=== PATIENT | female | born 1945 | race Caucasian/White ===

== ENCOUNTER 2017-05-06 13:50 | Emergency (ER) | payer MEDICARE ==
[~2017-05-06] VITALS: Ht 157.5 cm; Wt 81.7 kg
[~2017-05-06 13:50] MED LIST: ATOR40TA PO; Humalog Mi100 UNIT/4; INSULANPEN; LOSA25 PO
[2017-05-06 15:29] LABS: BASOPHILS ABSOLUTE AUTO 0.04 K/mm3 (0.00-0.23); BASOPHILS PERCENT AUTO 0 % (0-2); EOSINOPHILS ABSOLUTE AUTO 0.06 K/mm3 (0.00-0.68); EOSINOPHILS PERCENT AUTO 1 % (0-6); Hematocrit 46.6 % (33.0-51.0); Hemoglobin 15.3 g/dL (11.5-16.0); IMMATURE GRAN ABSOLUTE AUTO 0.04 K/mm3 (0.00-0.10); IMMATURE GRAN PERCENT AUTO 0 % (0-1); LYMPHOCYTES ABSOLUTE AUTO 1.33 K/mm3 (0.84-5.20); LYMPHOCYTES PERCENT AUTO 14 % (21-46); MONOCYTES ABSOLUTE AUTO 0.61 K/mm3 (0.16-1.47); MONOCYTES PERCENT AUTO 6 % (4-13); Mean Corpuscular HGB 31.3 pg (26.0-34.0); Mean Corpuscular HGB Conc 32.8 g/dL (31.5-36.5); Mean Corpuscular Volume 95 fL (80-100); NEUTROPHILS ABSOLUTE AUTO 7.75 K/mm3 (1.96-9.15); NEUTROPHILS PERCENT AUTO 79 % (41-73); RDW Coefficient Variation 13.3 % (11.7-14.2); RDW Standard Deviation 47.2 fL (35.1-46.3); Red Blood Cell Count 4.89 M/mm3 (3.80-5.20); White Blood Cell Count 9.83 K/mm3 (4.00-11.30)
[2017-05-06 15:48] LABS: Mean Platelet Volume 12.4 fL (9.1-12.4); Platelet Count 132 K/mm3 (150-400)
[2017-05-06 15:50] LABS: Alanine Aminotransfer (ALT/SGP 29 U/L (12-78); Albumin, Blood 3.7 g/dL (3.4-5.0); Albumin/Globulin Ratio 0.9 (0.8-1.8); Alk Phos 61 U/L (50-136); Anion Gap 8 mmol/L (6-16); Aspartate Aminotrans (AST/SGOT 41 U/L (12-37); Bilirubin, Total 0.6 mg/dL (0.1-1.0); Blood Urea Nitrogen 15 mg/dL (8-24); Bun/Creatinine Ratio 18.4 (12.0-20.0); CO2, Blood 26 mmol/L (21-32); Calcium, Blood 9.4 mg/dL (8.5-10.1); Chloride, Blood 104 mmol/L (98-108); Creatinine, Blood 0.82 mg/dL (0.40-1.00); Globulin, Blood 3.9 g/dL (2.2-4.0); Glomerular Filtration Rate >60 (60-); Glucose, Blood 185 mg/dL (70-99); Sodium, Blood 138 mmol/L (136-145); Total Protein, Blood 7.6 g/dL (6.4-8.2)
[2017-05-06] MEDS ORDERED: HYDMOR2 PO (18:42)
== END 2017-05-06 18:47 | disposition home or self-care (01) ==
LOC: ER 13:50
PROVIDERS: Internal Medicine
DX: S19.9XXA Unspecified injury of neck, initial encounter (principal); E11.9 Type 2 diabetes mellitus without complications; I25.10 Atherosclerotic heart disease of native coronary artery without angina pectoris; Z79.899 Other long term (current) drug therapy; Z79.4 Long term (current) use of insulin; Z86.73 Personal history of transient ischemic attack (TIA), and cerebral infarction without residual deficits; W01.0XXA Fall on same level from slipping, tripping and stumbling without subsequent striking against object, initial encounter; Y92.480 Sidewalk as the place of occurrence of the external cause
CPT/HCPCS: 36415; 72125; 80053; 85025; 93005; 93010; 96374; 96375; 99284; J1170; J2405; J3010

== ENCOUNTER 2019-08-03 08:26 | Day surgery (SDC) | payer OTHER ==
[~2019-08-03] VITALS: Ht 160 cm; Wt 74.3 kg
[~2019-08-03 08:26] MED LIST changes: +AMLO5 PO; +ASPIR 8181 M1 PO; +ATOR80 PO; +ATORVASTATIN CA PO; +BASAGLAR K100 UNIT/1 SC; +DOCU100 PO; +FAMO20 PO; +HYDMOR2 PO; +LANS30EC PO; +LOSARTAN POTASS25 M2 PO; +MIRALAX17 GM PO
--- NOTE | 2019-08-03 09:57 | NUR ---
08/03/19 0957 Malena Richard V 2 FAILED IV IN R FOREARM, 2 FAILED IV IN L FOREARM, 1 IV PLACED IN L HAND.
== END 2019-08-03 10:50 | disposition home or self-care (01) ==
LOC: ORSCSDS 08:26
PROVIDERS: Internal Medicine Gastroenterology
PROC: 0DBK8ZX Excision of Ascending Colon, Via Natural or Artificial Opening Endoscopic, Diagnostic (ICD-10-PCS; principal; 2019-08-03 09:30)
PROC: 0DBH8ZX Excision of Cecum, Via Natural or Artificial Opening Endoscopic, Diagnostic (ICD-10-PCS; principal; 2019-08-03 09:30)
PROC: 0DB58ZX Excision of Esophagus, Via Natural or Artificial Opening Endoscopic, Diagnostic (ICD-10-PCS; principal; 2019-08-03 09:30)
PROC: 0DBN8ZX Excision of Sigmoid Colon, Via Natural or Artificial Opening Endoscopic, Diagnostic (ICD-10-PCS; principal; 2019-08-03 09:30)
DX: Z12.11 Encounter for screening for malignant neoplasm of colon (principal); Z86.010 Personal history of colon polyps; K21.9 Gastro-esophageal reflux disease without esophagitis; D12.5 Benign neoplasm of sigmoid colon; D12.0 Benign neoplasm of cecum; D12.2 Benign neoplasm of ascending colon; K57.30 Diverticulosis of large intestine without perforation or abscess without bleeding; K64.1 Second degree hemorrhoids; G47.33 Obstructive sleep apnea (adult) (pediatric); E78.5 Hyperlipidemia, unspecified; I10 Essential (primary) hypertension; E11.9 Type 2 diabetes mellitus without complications; I25.10 Atherosclerotic heart disease of native coronary artery without angina pectoris; Z79.4 Long term (current) use of insulin; Z79.899 Other long term (current) drug therapy; Z79.82 Long term (current) use of aspirin
CPT/HCPCS: 82947; J2704; J7120

== ENCOUNTER → 2020-02-01 | Outpatient (CLI) | payer OTHER ==
[2020-02-01 13:39] LABS: Source, Urine Clean Catch
[2020-02-01 15:58] LABS: Appearance, Urine Clear (Clear); Bilirubin, Urine Neg (Neg); Blood, Urine Neg (Neg); Color, Urine Yellow (P-Yellow); Glucose Qualitative, Urine Neg (Neg); Ketones, Urine Neg (Neg); Leukocyte Esterase, Urine Neg (Neg); Nitrite, Urine Neg (Neg); Protein, Urine Neg (Neg); Urobilinogen, Urine NORM (Normal); pH, Urine 6.5 (5.0-8.0)
== END | disposition home or self-care (01) ==
LOC: LAB 11:56 → LAB SHORT 11:56 → LAB FUT 01-18 08:40
PROVIDERS: Physician Assistant
DX: R79.89 Other specified abnormal findings of blood chemistry (principal)
CPT/HCPCS: 81003

== ENCOUNTER 2020-02-12 15:10 | Emergency (ER) | payer OTHER ==
[~2020-02-12] VITALS: Ht 157.5 cm; Wt 74.8 kg
[2020-02-12 16:03] LABS: BASOPHILS ABSOLUTE AUTO 0.04 K/mm3 (0.00-0.23); BASOPHILS PERCENT AUTO 1 % (0-2); EOSINOPHILS ABSOLUTE AUTO 0.19 K/mm3 (0.00-0.68); EOSINOPHILS PERCENT AUTO 3 % (0-6); Hematocrit 39.5 % (33.0-51.0); Hemoglobin 12.5 g/dL (11.5-16.0); IMMATURE GRAN PERCENT AUTO 0 % (0-1); LYMPHOCYTES ABSOLUTE AUTO 2.45 K/mm3 (0.84-5.20); LYMPHOCYTES PERCENT AUTO 40 % (21-46); MONOCYTES ABSOLUTE AUTO 0.61 K/mm3 (0.16-1.47); MONOCYTES PERCENT AUTO 10 % (4-13); Mean Corpuscular HGB 31.7 pg (26.0-34.0); Mean Corpuscular HGB Conc 31.6 g/dL (31.5-36.5); Mean Corpuscular Volume 100 fL (80-100); Mean Platelet Volume 10.9 fL (9.1-12.4); NEUTROPHILS ABSOLUTE AUTO 2.84 K/mm3 (1.96-9.15); NEUTROPHILS PERCENT AUTO 46 % (41-73); Platelet Count 226 K/mm3 (150-400); RDW Coefficient Variation 13.5 % (11.7-14.2); RDW Standard Deviation 49.1 fL (35.1-46.3); Red Blood Cell Count 3.94 M/mm3 (3.80-5.20); White Blood Cell Count 6.13 K/mm3 (4.00-11.30)
[2020-02-12 17:52] LABS: Troponin I <0.015 ng/mL (0.000-0.040)
[2020-02-12 18:00] LABS: Alanine Aminotransfer (ALT/SGP 23 U/L (12-78); Albumin, Blood 3.3 g/dL (3.4-5.0); Albumin/Globulin Ratio 0.9 (0.8-1.8); Alk Phos 85 U/L (50-136); Anion Gap 7 mmol/L (6-16); Aspartate Aminotrans (AST/SGOT 20 U/L (12-37); Bilirubin, Total 0.3 mg/dL (0.1-1.0); Blood Urea Nitrogen 18 mg/dL (8-24); Bun/Creatinine Ratio 22.6 (12.0-20.0); CO2, Blood 26 mmol/L (21-32); Calcium, Blood 9.2 mg/dL (8.5-10.1); Chloride, Blood 107 mmol/L (98-108); Globulin, Blood 3.8 g/dL (2.2-4.0); Glomerular Filtration Rate >60 (60-); Glucose, Blood 157 mg/dL (70-99); Potassium, Blood 3.7 mmol/L (3.5-5.5); Sodium, Blood 140 mmol/L (136-145); Total Protein, Blood 7.1 g/dL (6.4-8.2)
[2020-02-12] MEDS ORDERED: Lasix40 MG PO (20:30)
[2020-02-12] MEDS ORDERED: POTCHL20ER PO (20:30)
== END 2020-02-12 20:45 | disposition home or self-care (01) ==
LOC: ER 15:10
PROVIDERS: Physician Assistant
DX: R60.0 Localized edema (principal); R07.9 Chest pain, unspecified; E11.9 Type 2 diabetes mellitus without complications; Z79.4 Long term (current) use of insulin; Z79.899 Other long term (current) drug therapy; Z88.8 Allergy status to other drugs, medicaments and biological substances; Z86.73 Personal history of transient ischemic attack (TIA), and cerebral infarction without residual deficits; Z95.1 Presence of aortocoronary bypass graft
CPT/HCPCS: 36415; 71046; 80053; 83880; 84484; 85025; 93005; 93010; 99284-25

== ENCOUNTER → 2020-03-07 | Outpatient (CLI) | payer OTHER ==
[~2020-03-07] MED LIST changes: +Lasix40 MG PO; +POTCHL20ER PO
== END | disposition home or self-care (01) ==
LOC: LAB 08:07 → LAB SHORT 08:07
DX: L60.2 Onychogryphosis (principal); B35.1 Tinea unguium
CPT/HCPCS: 88305; 88312

== ENCOUNTER 2021-04-29 22:11 | Inpatient (IN) | payer OTHER ==
[~2021-04-29] VITALS: Ht 157.5 cm; Wt 74.5 kg
[~2021-04-29 22:11] MED LIST changes: +ELIQUIS5 M2 PO; +FURO20 PO; +KLOR-CON 1010 ME1 PO; +LISINOPRIL2.5 MG PO; +Lasix20 MG PO; +OMEP20ER PO
[2021-04-29 22:45] LABS: BASOPHILS ABSOLUTE AUTO 0.03 K/mm3 (0.00-0.23); BASOPHILS PERCENT AUTO 0 % (0-2); EOSINOPHILS ABSOLUTE AUTO 0.13 K/mm3 (0.00-0.68); EOSINOPHILS PERCENT AUTO 2 % (0-6); Hematocrit 40.5 % (33.0-51.0); Hemoglobin 13.2 g/dL (11.5-16.0); IMMATURE GRAN ABSOLUTE AUTO 0.01 K/mm3 (0.00-0.10); IMMATURE GRAN PERCENT AUTO 0 % (0-1); LYMPHOCYTES ABSOLUTE AUTO 2.04 K/mm3 (0.84-5.20); LYMPHOCYTES PERCENT AUTO 30 % (21-46); MONOCYTES ABSOLUTE AUTO 0.58 K/mm3 (0.16-1.47); MONOCYTES PERCENT AUTO 9 % (4-13); Mean Corpuscular HGB 31.8 pg (26.0-34.0); Mean Corpuscular HGB Conc 32.6 g/dL (31.5-36.5); Mean Corpuscular Volume 98 fL (80-100); Mean Platelet Volume 10.8 fL (9.1-12.4); NEUTROPHILS PERCENT AUTO 59 % (41-73); Platelet Count 240 K/mm3 (150-400); RDW Coefficient Variation 14.7 % (11.7-14.2); Red Blood Cell Count 4.15 M/mm3 (3.80-5.20); White Blood Cell Count 6.79 K/mm3 (4.00-11.30)
[2021-04-29 23:07] LABS: Alanine Aminotransfer (ALT/SGP 19 U/L (12-78); Albumin, Blood 3.5 g/dL (3.4-5.0); Albumin/Globulin Ratio 0.8 (0.8-1.8); Alk Phos 74 U/L (50-136); Anion Gap 9 mmol/L (6-16); Aspartate Aminotrans (AST/SGOT 25 U/L (12-37); Bilirubin, Total 0.5 mg/dL (0.1-1.0); Blood Urea Nitrogen 28 mg/dL (8-24); Bun/Creatinine Ratio 33.7 (12.0-20.0); CO2, Blood 25 mmol/L (21-32); Calcium, Blood 9.7 mg/dL (8.5-10.1); Chloride, Blood 107 mmol/L (98-108); Creatinine, Blood 0.83 mg/dL (0.40-1.00); Globulin, Blood 4.4 g/dL (2.2-4.0); Glomerular Filtration Rate >60 (60-); Glucose, Blood 217 mg/dL (70-99); Potassium, Blood 3.9 mmol/L (3.5-5.5); Sodium, Blood 141 mmol/L (136-145); Total Protein, Blood 7.9 g/dL (6.4-8.2)
[2021-04-30] MEDS ORDERED: ATORVASTATIN CA20 MG PO (02:22)
[2021-04-30] MEDS ORDERED: XARELTO20 M1 PO (02:22)
[2021-04-30] MEDS ORDERED: FARXIGA5 MG PO (02:23)
[2021-04-30] MEDS ORDERED: ASPI325 PO (03:39)
--- NOTE | 2021-04-30 03:41 | NUR ---
ADMISSION: PATIENT IS RECIEVED FROM ER VIA STRETCHER. ABLE TO AMBULATE FROM STRETCHER TO BED, NO DIZZINESS OR CHEST PAIN REPORTED, VSS. PATIENT IS ORIENTED TO ROOM AND CALL [facility]. NPO AT THIS TIME. BED ALARM IS ON FOR SAFETY.
--- NOTE | 2021-04-30 06:23 | NUR ---
SHIFT SUMMARY: PATIENT IS A&OX4, REPORTS DIZZINESS AT TIMES WHEN UP. TELI. HAS BEEN A-FIB 50-60'S WITH ONE EPISODE OF BRADYCARDIA INTO THE 40'S, NON SUSTAINING. PATIENT WAS ASYMPTOMATIC. NPO FOR STRESS TEST TODAY. TROPONIN WAS CRITICAL THIS AM, 316. DR JAIN WAS NOTIFIED, HE STATED THAT HEPARIN GTT ORDERS WOULD BE PLACED. VSS, PATIENT CONTINUES TO REPORT NO CHEST PAIN. PATIENT DOES NOT UDE CALL [facility] FOR ASSIST OOB, BED ALARM IS ON.
[2021-04-30 08:38] LABS: International Normalized Ratio 1.19; Prothrombin Time Results 12.4 Sec (9.7-11.5)
--- NOTE | 2021-04-30 09:09 | NUR ---
NOTIFIED OF CRITICAL LEVEL TROP
--- NOTE | 2021-04-30 18:41 | NUR ---
SHIFT SUMMARY PT A&O X4 AND IN PLEASENT MOOD T/O SHIFT. FAMILY @ BEDSIDE DURING VISITING HOURS. HEP DRIP INITIATED PHARM CONSULT. STRESS STARTED TODAY, 2ND PORTION PLANNED FOR AM. PLAN NO CAFFEINE AFTER 1999, NPO @ 0000 BUT CAN HAVE H20. VSS. BLOOD GLUCOSE MEDICATED PER EMAR. TELE IN PLACE. CALL LIGHT W/IN REACH.
--- NOTE | 2021-04-30 22:27 | NUR ---
Cardiac: Patient had an 2.8 sec. pause on teli. rythum is a-fib @ 39-94. Dr Bhandari was notified. No new orders. continue to monitor.
--- NOTE | 2021-05-01 03:39 | NUR ---
CARDIAC: PATIENT CONTINUES TO HAVE PAUSES, FROM 2.5 TO 3.2. PATIENT IS SLEEPING DURING PAUSES, NO VSS OBSERVED. TELI RHYTHM IS A-FIB 39-[address] JAIN WAS NOTIFIED AND ORDERS TO DC LOPRESSOR Q DAY AND CONTINUE TO MONITOR.
--- NOTE | 2021-05-01 06:28 | NUR ---
SHIFT SUMMARY: PATIENT CONTINUED TO HAVE PAUSES ON TELI THROUGH THE NIGHT. VSS, PATIENT REMAINED ASYMPTOMATIC. SUPERVISOR SANDBLASTER WAS UPDATED ON TELI EVENTS.
[2021-05-01 08:31] LABS: BASOPHILS ABSOLUTE AUTO 0.04 K/mm3 (0.00-0.23); BASOPHILS PERCENT AUTO 1 % (0-2); EOSINOPHILS ABSOLUTE AUTO 0.37 K/mm3 (0.00-0.68); EOSINOPHILS PERCENT AUTO 6 % (0-6); Hematocrit 44.7 % (33.0-51.0); Hemoglobin 14.3 g/dL (11.5-16.0); IMMATURE GRAN PERCENT AUTO 0 % (0-1); LYMPHOCYTES ABSOLUTE AUTO 2.05 K/mm3 (0.84-5.20); LYMPHOCYTES PERCENT AUTO 34 % (21-46); MONOCYTES ABSOLUTE AUTO 0.58 K/mm3 (0.16-1.47); MONOCYTES PERCENT AUTO 10 % (4-13); Mean Corpuscular HGB 31.2 pg (26.0-34.0); Mean Corpuscular Volume 97 fL (80-100); NEUTROPHILS ABSOLUTE AUTO 2.94 K/mm3 (1.96-9.15); NEUTROPHILS PERCENT AUTO 49 % (41-73); Platelet Count 232 K/mm3 (150-400); RDW Coefficient Variation 14.5 % (11.7-14.2); Red Blood Cell Count 4.59 M/mm3 (3.80-5.20); White Blood Cell Count 5.98 K/mm3 (4.00-11.30)
[2021-05-01 08:47] LABS: Anion Gap 7 mmol/L (6-16); Blood Urea Nitrogen 19 mg/dL (8-24); Bun/Creatinine Ratio 26.1 (12.0-20.0); CO2, Blood 30 mmol/L (21-32); Calcium, Blood 9.3 mg/dL (8.5-10.1); Chloride, Blood 104 mmol/L (98-108); Creatinine, Blood 0.73 mg/dL (0.40-1.00); Glomerular Filtration Rate >60 (60-); Glucose, Blood 138 mg/dL (70-99); Magnesium, Blood 2.2 mg/dL (1.6-2.4); Phosphorus, Blood 3.7 mg/dL (2.5-4.9); Potassium, Blood 3.3 mmol/L (3.5-5.5); Sodium, Blood 141 mmol/L (136-145)
--- NOTE | 2021-05-01 13:35 | NUR ---
EFM Initial Interview with [employer] Supervisor 1. Who did you speak with? Spoke with patient and Joe (at bedside) 2. What is the patient's prior level of functions? Patient lives independently with spouse Jeo. Joe states patient is "wobbly" when walking, but refuses to use her walker consistently. She has a 2WW and he feels she uses it incorrectly and need proper demonstration on usage. Patient is able to perform ADL's with minimal assistance. She does all the housekeeping and cooking. Joe takes care of the property. They live in a single story home with three cats; one step at the entrance and two steps in the back of the residence. 3. Does patient still drive? No, family and [facility] as needed. 4. POA/PCP/NOK: NOK: spouse Joe [phone] 5. ANTICIPATED DISCHARGE NEEDS/GOALS: SNF/UVNR (ER rn field case manager coordinated) - DME: patient has a 2WW/cane -Home Health: TBD/no agency preference ( is afraid his will decline SNF and HH). -Medication Management: self/family. -Preferred Pharmacy-[facility] 6. List barriers to discharge: No barriers on this date 7. Discharge Plan: TBD 8. PCP Follow up appointment: Will be scheduled within seven calendar days of discharge. Explained importance of scheduling and attendance. 9. OTHER COMMENTS: Patient has a strong support network
--- NOTE | 2021-05-01 16:57 | NUR ---
Per Dr. Solis discharge appropriate. Patient did not oppose discharge. Patient is discharged home. Date of discharge: 05/01/2021 Date of admission: 04/30/2021 Provisional diagnosis at time of admission: NSTEMI Final Diagnosis at time of discharge: NSTEMI Transportation provided by: Family Location/Residence: [address] [place] [address] DME Ordered: None ordered Follow-ups needed: [facility] will contact patient to schedule hospital follow-up visit. Reinforced importance of hospital follow-up with PCP. Patient scheduled on 05/04 @ 11:00 am with Karissa per Dr. Solis. Provider/PCP: Dr. Catrina Dias When: WITHIN 1 WEEK Specialty: Renal panel function at 05/04 appt with FARHEEN Hancock Confirmed numbers: Patient [phone] Comment: Patient to contact PCP if any questions regarding medication management, social service needs, and if condition worsens go to Urgent Care/ER. No barriers to discharge. Patient has a strong support network.
[2021-05-01] MEDS ORDERED: LOSA25 PO (17:35)
[2021-05-01] MEDS ORDERED: ASPI81CH PO (17:35)
--- NOTE | 2021-05-01 18:06 | NUR ---
DISCHARGE PATIENT TRANSPORTED VIA WHEELCHAIR TO PRIVATE VEHICLE. DISCHARGE INSTRUCTIONS EXPLAINED TO PATIENT. PATIENT STATED UNDERSTANDING. PACKET SENT WITH PATIENT. BELONGINGS SENT WITH PATIENT. IV REMOVED WITHOUT DIFFICULTY. TELE REMOVED WITHOUT DIFFICULTY. MEDICATIONS FAXED TO PREFERRED PHARMACY. [facility] TO SCHEDULE FOLLOW UP APPOINTMENT. PATIENT TO SCHEDULE FOLLOW UP WITH GROUP HOME SUPERVISOR.
== END 2021-05-01 17:50 | disposition home or self-care (01) | DRG 280 ==
LOC: ER 22:11 → MEDS 22:12
PROVIDERS: Family Medicine; Student in an Organized Health Care Education/Training Program; ADMIT Internal Medicine
DX: I21.4 Non-ST elevation (NSTEMI) myocardial infarction (principal); I50.23 Acute on chronic systolic (congestive) heart failure; I48.20 Chronic atrial fibrillation, unspecified; I48.92 Unspecified atrial flutter; E11.9 Type 2 diabetes mellitus without complications; I11.0 Hypertensive heart disease with heart failure; I25.10 Atherosclerotic heart disease of native coronary artery without angina pectoris; K21.9 Gastro-esophageal reflux disease without esophagitis; I25.5 Ischemic cardiomyopathy; E78.5 Hyperlipidemia, unspecified; G47.33 Obstructive sleep apnea (adult) (pediatric); E03.9 Hypothyroidism, unspecified; R05.9 Cough, unspecified; T46.4X5A Adverse effect of angiotensin-converting-enzyme inhibitors, initial encounter; I44.7 Left bundle-branch block, unspecified; I27.20 Pulmonary hypertension, unspecified; I08.1 Rheumatic disorders of both mitral and tricuspid valves; Z95.1 Presence of aortocoronary bypass graft; Z86.73 Personal history of transient ischemic attack (TIA), and cerebral infarction without residual deficits; Z88.8 Allergy status to other drugs, medicaments and biological substances; Z79.899 Other long term (current) drug therapy
CPT/HCPCS: 36415; 71045; 78452; 80053; 80069; 82947; 83735; 83880; 84484; 85025; 85610; 85730; 93005; 93010; 93017; 99285-25; A9270; A9500; G0378; J0706; J1644; J1940; J2785

== ENCOUNTER 2022-03-28 19:23 | Emergency (ER) | payer OTHER ==
[~2022-03-28] VITALS: Ht 157.5 cm; Wt 68.0 kg
[~2022-03-28 19:23] MED LIST changes: +ALDACTONE25 MG PO; +ASPI325 PO; +ASPI81CH PO; +ATORVASTATIN CA20 MG PO; +ATORVASTATIN CA80 M1 PO; +FARXIGA10 MG PO; +FARXIGA5 MG PO; +FUROSEMIDE40 MG PO; +LOSARTAN POTAS100 M1 PO; +METFORMIN HCL500 M3 PO; +XARELTO20 M1 PO
[2022-03-28 19:57] LABS: BASOPHILS ABSOLUTE AUTO 0.03 K/mm3 (0.00-0.23); BASOPHILS PERCENT AUTO 0 % (0-2); EOSINOPHILS PERCENT AUTO 2 % (0-6); Hematocrit 39.2 % (33.0-51.0); Hemoglobin 13.3 g/dL (11.5-16.0); IMMATURE GRAN ABSOLUTE AUTO 0.01 K/mm3 (0.00-0.10); IMMATURE GRAN PERCENT AUTO 0 % (0-1); LYMPHOCYTES ABSOLUTE AUTO 1.34 K/mm3 (0.84-5.20); LYMPHOCYTES PERCENT AUTO 14 % (21-46); MONOCYTES ABSOLUTE AUTO 0.59 K/mm3 (0.16-1.47); MONOCYTES PERCENT AUTO 6 % (4-13); Mean Corpuscular HGB 32.3 pg (26.0-34.0); Mean Corpuscular HGB Conc 33.9 g/dL (31.5-36.5); Mean Corpuscular Volume 95 fL (80-100); Mean Platelet Volume 12.1 fL (9.1-12.4); NEUTROPHILS ABSOLUTE AUTO 7.61 K/mm3 (1.96-9.15); NEUTROPHILS PERCENT AUTO 78 % (41-73); Platelet Count 159 K/mm3 (150-400); RDW Coefficient Variation 13.2 % (11.7-14.2); RDW Standard Deviation 46.4 fL (35.1-46.3); Red Blood Cell Count 4.12 M/mm3 (3.80-5.20); White Blood Cell Count 9.78 K/mm3 (4.00-11.30)
[2022-03-28 20:16] LABS: Albumin, Blood 3.1 g/dL (3.4-5.0); Albumin/Globulin Ratio 0.8 (0.8-1.8); Bilirubin, Total 0.6 mg/dL (0.1-1.0); Bun/Creatinine Ratio 35.1 (12.0-20.0); Creatinine, Blood 1.14 mg/dL (0.40-1.00); Globulin, Blood 3.9 g/dL (2.2-4.0)
[2022-03-28] MEDS ORDERED: ONDA4ODT MM (22:05)
== END 2022-03-29 00:35 | disposition home or self-care (01) ==
LOC: ER 19:23
PROVIDERS: Student in an Organized Health Care Education/Training Program
DX: R11.10 Vomiting, unspecified (principal); E11.9 Type 2 diabetes mellitus without complications; I48.91 Unspecified atrial fibrillation; Z79.01 Long term (current) use of anticoagulants
CPT/HCPCS: 36415; 80053; 85025; 99283; A9270

== ENCOUNTER → 2023-12-17 | Outpatient (CLI) | payer OTHER ==
[~2023-12-17] MED LIST changes: +ACET325 PO; -ATORVASTATIN CA20 MG PO; +HUMALOG KW100 UNIT/1 SC; +LOSA50 PO; +ONDA4ODT MM; +POTA10T PO; +PSYLLIUM FIBER0.4 GM PO; +SEMGLEE (Y100 UNIT/2 SC
[2023-12-17 18:42] LABS: Appearance, Urine Hazy (Clear); Bilirubin, Urine Neg (Neg); Blood, Urine 2+ (Neg); Color, Urine Yellow (P-Yellow); Glucose Qualitative, Urine 4+ (Neg); Ketones, Urine 1+ (Neg); Leukocyte Esterase, Urine 3+ (Neg); Nitrite, Urine Pos (Neg); Protein, Urine 2+ (Neg); Urobilinogen, Urine NORM (Normal)
[2023-12-17 18:59] LABS: Bacteria Many /hpf; Squamous Epithelial Cells Mod /hpf (Few); Transitional Epithelial Cells Rare /hpf (0-Rare)
== END | disposition home or self-care (01) ==
LOC: LAB 13:39 → LAB SHORT 13:39
PROVIDERS: Family Medicine
DX: R30.0 Dysuria (principal); R10.9 Unspecified abdominal pain
CPT/HCPCS: 81001; 87077; 87086; 87186

== ENCOUNTER 2024-01-31 13:57 | Emergency (ER) | payer OTHER ==
[~2024-01-31] VITALS: Ht 160 cm; Wt 81.7 kg
[2024-01-31 16:56] LABS: BASOPHILS ABSOLUTE AUTO 0.06 K/mm3 (0.00-0.23); BASOPHILS PERCENT AUTO 1 % (0-2); EOSINOPHILS ABSOLUTE AUTO 0.13 K/mm3 (0.00-0.68); EOSINOPHILS PERCENT AUTO 2 % (0-6); Hemoglobin 15.4 g/dL (11.5-16.0); IMMATURE GRAN ABSOLUTE AUTO 0.01 K/mm3 (0.00-0.10); IMMATURE GRAN PERCENT AUTO 0 % (0-1); LYMPHOCYTES ABSOLUTE AUTO 2.53 K/mm3 (0.84-5.20); LYMPHOCYTES PERCENT AUTO 32 % (21-46); MONOCYTES ABSOLUTE AUTO 0.73 K/mm3 (0.16-1.47); MONOCYTES PERCENT AUTO 9 % (4-13); Mean Corpuscular HGB 32.4 pg (26.0-34.0); Mean Corpuscular HGB Conc 32.8 g/dL (31.5-36.5); Mean Corpuscular Volume 99 fL (80-100); Mean Platelet Volume 12.1 fL (9.1-12.4); NEUTROPHILS ABSOLUTE AUTO 4.53 K/mm3 (1.96-9.15); NEUTROPHILS PERCENT AUTO 57 % (41-73); Platelet Count 185 K/mm3 (150-400); RDW Coefficient Variation 13.9 % (11.7-14.2); RDW Standard Deviation 50.7 fL (35.1-46.3); Red Blood Cell Count 4.76 M/mm3 (3.80-5.20); White Blood Cell Count 7.99 K/mm3 (4.00-11.30)
[2024-01-31 17:11] LABS: Albumin, Blood 3.7 g/dL (3.4-5.0); Albumin/Globulin Ratio 0.9 (0.8-1.8); Bilirubin, Total 0.8 mg/dL (0.1-1.0); Bun/Creatinine Ratio 19.4 (12.0-20.0); Calcium, Blood 9.1 mg/dL (8.5-10.1); Creatinine, Blood 0.98 mg/dL (0.40-1.00); Globulin, Blood 4.3 g/dL (2.2-4.0); Potassium, Blood 3.9 mmol/L (3.5-5.5)
[2024-01-31] MEDS ORDERED: Nitrofurantoin100 M1 PO (18:11)
[2024-01-31] MEDS ORDERED: KLOR-CON 1010 ME9 PO (18:12)
[2024-01-31] MEDS ORDERED: INSULIN AS100 UNIT/8 SC (18:15)
[2024-01-31 19:02] LABS: Source, Urine Clean Catch
[2024-01-31 19:10] LABS: Appearance, Urine Clear (Clear); Bilirubin, Urine Neg (Neg); Blood, Urine Neg (Neg); Color, Urine Yellow (P-Yellow); Glucose Qualitative, Urine 4+ (Neg); Ketones, Urine Neg (Neg); Leukocyte Esterase, Urine 1+ (Neg); Nitrite, Urine Neg (Neg); Protein, Urine Neg (Neg); Urobilinogen, Urine NORM (Normal)
[2024-01-31 19:22] LABS: Bacteria Many /hpf; Squamous Epithelial Cells Few /hpf (Few)
[2024-01-31 19:23] LABS: Yeast/Fungi Urine Rare /hpf
[2024-01-31 19:40] LABS: Influenza A, PCR NEGATIVE (NEGATIVE); Influenza B, PCR NEGATIVE (NEGATIVE); Resp Syncytial Virus, PCR NEGATIVE (NEGATIVE); SARS-Cov-2 (COVID-19) PCR, MMC NEGATIVE (NEGATIVE)
[2024-01-31 20:30] VITALS: BP 141/87
[2024-01-31] MEDS ORDERED: CEFD300 PO (20:49)
[2024-01-31] MEDS ORDERED: Cefdinir 300 MG Cap PO ONE (20:50)
== END 2024-01-31 21:00 | disposition home or self-care (01) ==
LOC: ER 13:57
PROVIDERS: Emergency Medicine
DX: N39.0 Urinary tract infection, site not specified (principal); Z88.8 Allergy status to other drugs, medicaments and biological substances; Z88.5 Allergy status to narcotic agent; Z79.899 Other long term (current) drug therapy; Z79.4 Long term (current) use of insulin; I10 Essential (primary) hypertension
CPT/HCPCS: 0241U; 70450; 71045; 80053; 81001; 85025; 87086; 93005; 93010; 99285-25; A9270

== ENCOUNTER → 2024-02-17 | Outpatient (CLI) | payer OTHER ==
[~2024-02-17] MED LIST changes: +BASAGLAR K100 UNIT/6 SC; +CEFD300 PO; +INSULIN AS100 UNIT/8 SC; +KLOR-CON 1010 ME9 PO; +Nitrofurantoin100 M1 PO
== END ==
LOC: LAB 16:13 → LAB SHORT 16:13
DX: N39.0 Urinary tract infection, site not specified (principal)
CPT/HCPCS: 87086

== ENCOUNTER 2024-02-24 09:03 | Day surgery (SDC) | payer OTHER ==
[2024-02-24] VITALS (9 sets, daily range): BP systolic 143–180; BP diastolic 63–87
[~2024-02-24] VITALS: Ht 157.5 cm; Wt 76.5 kg
[~2024-02-24 09:03] MED LIST changes: -BASAGLAR K100 UNIT/6 SC
[2024-02-24] MEDS ORDERED: BASAGLAR K100 UNIT/6 SC (09:50)
[2024-02-24] MEDS ORDERED: CeFAZolin Sodium 2,000 MG VIAL ONE (12:18)
[2024-02-24] MEDS ORDERED: NS 1,000 ML IV ONE ×2 (12:19→12:20)
[2024-02-24] MEDS ORDERED: FentaNYL Citrate 50 MCG/ML 2 ML Injection ONE (12:19)
[2024-02-24] MEDS ORDERED: Midazolam HCl 1MG / ML 2ML Vial ONE (12:19)
[2024-02-24] MEDS ORDERED: NS 100 ML IV ONE (12:19)
[2024-02-24] MEDS ORDERED: Heparin Sodium 1000 Units/ML 10ML MDV ONE (12:20)
[2024-02-24] MEDS ORDERED: CeFAZolin Sodium 1000 mg Vial ONE (12:20)
--- NOTE | 2024-02-24 14:20 | NUR ---
ASSUMED CAR OF PT. PT AWAKE AND ANSWERING QUESTIONS APPROPRIATELY; DENIES PAIN POST PROCEDURE. MONTIOR V PACED 60, B/P 180/73, SPO2 99% RA. L CHEST SPPM SITE NO SWELLING/HEMATOMA, TELFA AND TEGADERM DRSG INTACT. PT HAS ICE PACK IN PLACE OVER SITE.
--- NOTE | 2024-02-24 16:20 | NUR ---
PT TO RADIOLOGY FOR CHEST X RAY.
--- NOTE | 2024-02-24 16:30 | NUR ---
PT RETURNED FROM RADIOLOGY.
--- NOTE | 2024-02-24 16:45 | NUR ---
DR PARKER IN TO DISCUSS RESULTS OF PROCEDURE WITH PT AND SPOUSE.
--- NOTE | 2024-02-24 17:00 | NUR ---
PT DRESSED WITH ASSISTANCE, SITE UNCHANGED; IV REMOVED-CANNULA INTACT. PT'S L ARM PLACED IN SLING.
--- NOTE | 2024-02-24 17:08 | NUR ---
PT AND SPOUSE RECEIVED DISCHARGE INSTRUCTIONS, MED LIST AND AFTER CARE INSTRUCTIONS; VERBALIZED GOOD UNDERSTANDING. PT LEFT FACILITY VIA W/C, CONDITION STABLE.
== END 2024-02-24 17:08 | disposition home or self-care (01) ==
LOC: MHTC 09:03 → ORSCMMR 09:05 → MHTC 17:08
DX: I48.21 Permanent atrial fibrillation (principal); I25.10 Atherosclerotic heart disease of native coronary artery without angina pectoris; I11.0 Hypertensive heart disease with heart failure; I50.20 Unspecified systolic (congestive) heart failure; E78.5 Hyperlipidemia, unspecified; E11.9 Type 2 diabetes mellitus without complications; G47.33 Obstructive sleep apnea (adult) (pediatric); Z79.899 Other long term (current) drug therapy; Z86.73 Personal history of transient ischemic attack (TIA), and cerebral infarction without residual deficits; Z88.8 Allergy status to other drugs, medicaments and biological substances; Z95.1 Presence of aortocoronary bypass graft
CPT/HCPCS: 33207; 71046; 99152; 99153; C1786; C1894; C1898; J0690; J1644; J2250; J3010; J7030; J7040; Q9967

== ENCOUNTER 2024-04-27 12:53 | Emergency (ER) | payer OTHER ==
[~2024-04-27] VITALS: Ht 157.5 cm; Wt 72.6 kg
[~2024-04-27 12:53] MED LIST changes: +BASAGLAR K100 UNIT/6 SC
[2024-04-27 13:17] VITALS: BP 168/84
[2024-04-27] MEDS ORDERED: Magnesium Hydroxide Conc 10 ML UDC PO ONE (14:55)
[2024-04-27] MEDS ORDERED: Glycerin Adult Supp 1 EA PR ONE (14:55)
[2024-04-27] MEDS ORDERED: Sod Phosphate/Sod Biphosphate 132 ML BTL PR ONE (14:55)
[2024-04-27] MEDS ORDERED: MIRALAX1714 PO (14:57)
[2024-04-27] MEDS ORDERED: Adult Glycerin1 EACH PR (15:28)
== END 2024-04-27 16:13 | disposition home or self-care (01) ==
LOC: ER 12:53
DX: K59.00 Constipation, unspecified (principal); Z88.8 Allergy status to other drugs, medicaments and biological substances; Z88.5 Allergy status to narcotic agent; Z79.4 Long term (current) use of insulin; Z79.01 Long term (current) use of anticoagulants; Z79.899 Other long term (current) drug therapy
CPT/HCPCS: 74018; 99283-25; A9270

== ENCOUNTER → 2025-02-10 | Outpatient (CLI) | payer OTHER ==
[~2025-02-10] MED LIST changes: +Adult Glycerin1 EACH PR; +MIRALAX1714 PO
[2025-02-10 16:55] LABS: Campylobacter Sp Not Detected (NOT DETECT); E. Coli O157 Not Detected (NOT DETECT); Enteroaggregative E. coli-EAEC Not Detected (NOT DETECT); Enteropathogenic E. coli-EPEC Not Detected (NOT DETECT); Enterotoxigenic E. coli-ETEC Not Detected (NOT DETECT); Salmonella Sp Not Detected (NOT DETECT); Shiga Toxin-prod E. coli-STEC Not Detected (NOT DETECT); Shigella/Enteroin E. coli-EIEC Not Detected (NOT DETECT); Vibrio Sp Not Detected (NOT DETECT)
== END ==
LOC: LAB SHORT 09:30 → LAB 09:30
PROVIDERS: Family Medicine
DX: R15.9 Full incontinence of feces (principal)
CPT/HCPCS: 87507